=== PATIENT | male | born 1945 | race Caucasian/White ===

== ENCOUNTER 2020-12-31 16:32 | Inpatient (IN) ==
[2020-12-31] MEDS ORDERED: SODIUM CHLORIDE 1,000 ML IV STA (16:41)
--- NOTE | 2020-12-31 17:06 | CT ---
EXAM: CT head without contrast. HISTORY: Lateralizing weakness. PROCEDURE: Contiguous axial CT images of the head without contrast with coronal and sagittal reforma ts. FINDINGS: There is diffuse cerebral atrophy. The ventricles and basal cisterns are normal in size an d configuration. No evidence of mass or midline shift. No intracranial hemorrhage or evidence of la rge vessel infarct. There is a left lacunar infarct. There are chronic small vessel ischemic change s in the white matter. No extra-axial fluid collection. The paranasal sinuses and mastoid air cells are normal in appearance. Impression: No intracranial hemorrhage or evidence of large vessel infarct. Old left lacunar infarct. Chronic small vessel ischemic changes. Diffuse cerebral atrophy. All CT scans are performed using dose optimization techniques as appropriate to the performed exam an d include at least one of the following: Automated exposure control, adjustment of the mA and/or kV according t o size, and the use of iterative reconstruction technique.
[2020-12-31 17:10] LABS: BASOPHILS % (AUTO) 0.1 % (0.0-3.0); EOSINOPHILS % (AUTO) 0.3 % (0.0-7.0); HEMATOCRIT 36.6 % (42.0-52.0); HEMOGLOBIN 13.1 g/dl (14.0-18.0); IMMATURE GRANULOCYTE % (AUTO) 0.4 % (0.0-5.0); LYMPHOCYTES # (AUTO) 2.2 K/uL (0.60-3.4); LYMPHOCYTES % (AUTO) 19.5 (10.0-50.0); MEAN CORPUSCULAR HEMOGLOBIN 32.3 pg (27.0-31.0); MEAN CORPUSCULAR HGB CONC 35.8 (31.8-35.4); MEAN CORPUSCULAR VOLUME 90.1 fl (80.0-94.0); MONOCYTES # (AUTO) 0.9 K/uL (0.4-2.0); MONOCYTES % (AUTO) 7.9 (0-10); NEUTROPHILS % (AUTO) 71.8 % (42.2-75.2); PLATELET COUNT 255 10^3/uL (140-440); RDW COEFFICIENT OF VARIATION 11.9 % (11.6-14.8); RED BLOOD COUNT 4.06 10^6/ul (4.70-6.10); WHITE BLOOD COUNT 11.08 K/ul (4.2-10.2)
[2020-12-31 17:23] LABS: ALANINE AMINOTRANSFERASE 21.5 U/L (0-50); ASPARTATE AMINO TRANSFERASE 32.2 U/L (17-59); BILIRUBIN,TOTAL 0.48 mg/dL (0.2-1.3); BLOOD UREA NITROGEN 53.6 mg/dL (9-20); CALCIUM 9.91 mg/dL (8.4-10.2); CHLORIDE 97.6 mmol/L (98-107); CREATININE 3.14 mg/dL (0.60-1.10); POTASSIUM 4.72 mmol/L (3.5-5.1); SODIUM 131.4 mmol/L (134.5-145)
--- NOTE | 2020-12-31 17:28 | ED.PDOC ---
General <LISSY RAMIREZ MD - Last Filed: 12/31/20 19:35> ED Provider: Dr. LISSY RAMIREZ MD Chief Complaint: Dizziness Stated Complaint: Pt has been more confused and dizzy than usual. denied acute lateralizing weakness, chest pain or SOB. Time Seen by Provider: 12/31/20 16:34 Mode of Arrival: Ambulance Information Source: Patient Exam Limitations: No limitations Nursing and Triage Documentation Reviewed and Agree: Yes Does patient meet sepsis criteria?: No System Inflammatory Response Syndrome: Not Applicable Sepsis Protocol: For patient's 13 years and over: Temp is 96.8 and below OR 101 and greater Pulse >90 BPM Resp >20/minute Acutely Altered Mental Status Are patient's symptoms suggestive of a new infection, such as: -Pneumonia -Skin, Soft Tissue -Endocarditis -UTI -Bone, Joint Infection -Implantable Device -Acute Abdominal Infection -Wound Infection -Meningitis -Blood Stream Catheter Infection -Unknown Neurological Complaint Exam <LISSY RAMIREZ MD - Last Filed: 12/31/20 19:35> Dizziness Complaint/Exam Last Known Well: 2 days ago Onset: Gradual Duration: 2 days. Symptoms Are: Still present Timing: Constant Episodes Lasting: Days Initial Severity: Mild Current Severity: Moderate Character: Reports Lightheaded, Weak and Dizzy Aggravating: Reports Position change Alleviating: Reports None Cardiac Risk Factors: Reports Hypertension CVA Risk Factors: Reports Hypertension JVD Present: No Carotid Bruit Present: No Glascow Coma Scale (see protocol): 15 Nystagmus Present: No Gag Reflex Present: Yes Meningeal Signs Positive: No Focal Weakness: Present None Focal Sensory Loss: Present None Differential Diagnoses: BPPV, Medication reaction, Metabolic abnormalities and Vasovagal reaction Review of Systems <LISSY RAMIREZ MD - Last Filed: 12/31/20 19:35> Review Of Systems Constitutional: Reports No symptoms Eyes: Reports No symptoms Ears, Nose, Mouth, Throat: Reports No symptoms Respiratory: Reports No symptoms Cardiac: Reports No symptoms GI: Reports Nausea : Reports No symptoms Musculoskeletal: Reports No symptoms Skin: Reports No symptoms Neurological: Reports Weakness Endocrine: Reports No symptoms Hematologic/Lymphatic: Reports No symptoms All Other Systems: Reviewed and Negative Physical Exam <LISSY RAMIREZ MD - Last Filed: 12/31/20 19:35> Physical Exam Appearance: Reports Other (unkempt) Ill-appearing: Mild Pain Distress: None Eyes: Reports AVANI, EOMI and Conjunctiva clear ENT: Reports Ears normal, Nose normal and Oropharynx normal Neck: Supple Respiratory: Reports Airway patent, Breath sounds equal, Rhonchi and Wheezes Cardiovascular: Reports RRR, Pulses normal, No rub and No murmur GI/: Reports Soft, Nontender, No masses, Bowel sounds normal and No Organomegaly Musculoskeletal: Reports Normal strength, ROM intact, No edema and No calf tenderness Skin: Reports Warm, Dry and Normal color Neurological: Reports Sensation intact, Motor intact, Reflexes intact, Cranial nerves intact, Alert and Oriented Psychiatric: Reports Affect appropriate and Mood appropriate <LISSY RAMRIEZ MD - Last Filed: 12/31/20 19:35> NIH Stroke Scale 1a. Level of Consciousness: 0=Alert and keenly responsive 1b. Level of Consciousness Questions: 0=Answers correctly to two questions 1c. Level of Consciousness Commands: 0=Performs two tasks correctly 2. Best Gaze: 0=Normal 3. Visual: 0=No visual loss 4. Facial Palsy: 0=Normal 5a. Motor Left Arm: 0=No drift,arm holds 90 degrees for 10 sec., leg 30 degrees for 5 sec. 5b. Motor Right Arm: 0=No drift,arm holds 90 degrees for 10 sec., leg 30 degrees for 5 sec. 6a. Motor Left Le=No drift,arm holds 90 degrees for 10 sec., leg 30 degrees for 5 sec. 6b. Motor Right Le=No drift,arm holds 90 degrees for 10 sec., leg 30 degrees for 5 sec. 7. Limb Ataxia: 0=Absent 8. Sensory: 0=Normal 9. Best Language: 0=No aphasia 10. Dysarthria: 0=Normal 11. Extincion and Inattention: 0=Normal Stroke Scale Total: 0 Interpretation <LISSY RAMIREZ MD - Last Filed: 12/31/20 19:35> Radiology Interpretation Radiology Interpretation By: Radiologist Exam Interpreted: CT Scan Re-Evaluation <LISSY RAMIREZ MD - Last Filed: 12/31/20 19:35> Re-Evaluation Time of Re-Evaluation: 17:28 Status: Improved Vital Signs Stable: Yes Pain Level: 0 Appearance: NAD Lungs: Other (mild wheezes and rhonchi) Skin: Warm and Dry Neuro: Alert and Oriented X3 CV: RRR <GULSHAN COWAN MD - Last Filed: 12/31/20 20:46> Critical Care Note Total Critical Care Time (mins): 30 Course <LISSY RAMIREZ MD - Last Filed: 12/31/20 19:35> Course Hematology/Chemistry: 12/31/20 17:05 12/31/20 17:05 Orders, Labs, Meds: Lab Review 12/31/20 12/31/20 12/31/20 17:05 17:05 17:05 WBC 11.08 H RBC 4.06 L Hgb 13.1 L Hct 36.6 L MCV 90.1 MCH 32.3 H MCHC 35.8 H RDW Coeff of [place] 11.9 Plt Count 255 Immature Gran % (Auto) 0.4 Neut % (Auto) 71.8 Lymph % (Auto) 19.5 Emm[place] % (Auto) 7.9 Eos % (Auto) 0.3 Baso % (Auto) 0.1 Neut # (Auto) 8.0 H Lymph # (Auto) 2.2 Emmons # (Auto) 0.9 Eos # (Auto) 0.0 Baso # (Auto) 0.0 Immature Gran # (Auto) 0.0 Sodium 131.4 L Potassium 4.72 Chloride 97.6 L Carbon Dioxide 23.0 Anion Gap 15.52 BUN 53.6 H Creatinine 3.14 H Estimated GFR (MDRD) 20.00 BUN/Creatinine Ratio 17.07 Glucose 113.0 H Lactic Acid 1.59 Calcium 9.91 Total Bilirubin 0.48 AST 32.2 ALT 21.5 Alkaline Phosphatase 110.0 Troponin I < 0.012 Total Protein 7.90 Albumin 4.60 Globulin 3.30 Albumin/Globulin Ratio 1.39 Urine Color Urine Clarity Urine pH Ur Specific [place] Urine Protein Urine Glucose (UA) Urine Ketones Urine Blood Urine Nitrite Urine Bilirubin Urine Urobilinogen Ur Leukocyte Esterase Urine Microscopic RBC Ur Squamous Epith Cells Amorphous Sediment Hyaline Casts Fine Granular Casts Urine Opiates Screen Ur Oxycodone Screen Urine Methadone Screen Ur Propoxyphene Screen Ur Barbiturates Screen U Tricyclic Antidepress Ur Phencyclidine Scrn Ur Amphetamine Screen U Methamphetamines Scrn U Benzodiazepines Scrn Urine Cocaine Screen U Cannabinoids Screen Plasma/Serum Alcohol < 10.0 12/31/20 12/31/20 20:01 20:01 WBC RBC Hgb Hct MCV MCH MCHC RDW Coeff of [place] Plt Count Immature Gran % (Auto) Neut % (Auto) Lymph % (Auto) Emm[place] % (Auto) Eos % (Auto) Baso % (Auto) Neut # (Auto) Lymph # (Auto) Emm[place] # (Auto) Eos # (Auto) Baso # (Auto) Immature Gran # (Auto) Sodium Potassium Chloride Carbon Dioxide Anion Gap BUN Creatinine Estimated GFR (MDRD) BUN/Creatinine Ratio Glucose Lactic Acid Calcium Total Bilirubin AST ALT Alkaline Phosphatase Troponin I Total Protein Albumin Globulin Albumin/Globulin Ratio Urine Color Yellow Urine Clarity Clear Urine pH 5.0 Ur Specific [place] 1.025 Urine Protein Trace H Urine Glucose (UA) Negative Urine Ketones 1+ H Urine Blood Negative Urine Nitrite Negative Urine Bilirubin 1+ H Urine Urobilinogen 0.2 Ur Leukocyte Esterase Negative Urine Microscopic RBC 2-5 Ur Squamous Epith Cells 0-2 Amorphous Sediment 1+ Hyaline Casts 2-5 Fine Granular Casts 2-5 Urine Opiates Screen Negative Ur Oxycodone Screen Negative Urine Methadone Screen Negative Ur Propoxyphene Screen Negative Ur Barbiturates Screen Negative U Tricyclic Antidepress Negative Ur Phencyclidine Scrn Negative Ur Amphetamine Screen Positive H U Methamphetamines Scrn Negative U Benzodiazepines Scrn Negative Urine Cocaine Screen Negative U Cannabinoids Screen Negative Plasma/Serum Alcohol Orders Category Date Time Status EKG-(ED ONLY) Stat CARDIO 12/31/20 16:41 Completed METERED DOSE INHALATION Routine CARDIO 12/31/20 17:33 Completed ED IV/MEDIPORT/POWERPORT .ONCE EMERGENCY 12/31/20 16:41 Active BLOOD ALCOHOL Stat LAB 12/31/20 17:05 Completed BLOOD CULTURE (ED ONLY) Stat LAB 12/31/20 17:20 Received CBC W/ AUTO DIFF Stat LAB 12/31/20 17:05 Completed COMPREHENSIVE METABOLIC PANEL Stat LAB 12/31/20 17:05 Completed DRUG SCREEN, URINE, RAPID Stat LAB 12/31/20 20:01 Completed LACTIC ACID Stat LAB 12/31/20 17:05 Completed RESPIRATORY PANEL 2.1 (PCR) Stat LAB 12/31/20 Ordered TROPONIN I Stat LAB 12/31/20 17:05 Completed URINALYSIS C & S IF INDICATED Stat LAB 12/31/20 20:01 Completed 0.9 % Sodium Chloride [Saline Flush] MEDS 12/31/20 16:41 Active 1 syr IVF PRN PRN Albuterol Inhaler(with Spacer) [Ventolin Hfa (Per Puff- MEDS 12/31/20 17:31 Discontinued with Spacer)] 2 puff IH ONCE ONE Ipratropium Inhaler(Spacer) [Atrovent Hfa Inhaler (Per MEDS 12/31/20 17:31 Discontinued Puff-with Spacer)] 2 puff IH ONCE ONE Methylprednisolone Sod Succ/Pf [Solu-Medrol 125 mg] MEDS 12/31/20 17:31 Discontinued 125 mg IVP ONCE ONE Sodium Chloride 0.9% [Sodium Chloride] 1,000 ml MEDS 12/31/20 16:[address] ABDOMEN/PELVIS WO CONTRAST Stat RADS 12/31/20 19:[address] CHEST W/O CONTRAST Stat RADS 12/31/20 17:[address] HEAD W/O CONTRAST Stat RADS 12/31/20 16:41 Completed Medications Generic Name Dose Route Start Last Admin Trade Name Freq PRN Reason Stop Dose Admin Sodium Chloride 1 syr 12/31/20 16:41 12/31/20 17:11 0.9% Sodium Chloride 10 Ml Disp.Syrin IVF 1 syr PRN PRN Administration To flush IV Discontinued Medications Generic Name Dose Route Start Last Admin Trade Name Freq PRN Reason Stop Dose Admin Albuterol Sulfate 2 puff 12/31/20 17:31 12/31/20 17:53 Albuterol Sulfate (Ventolin Hfa) 18 Gm 1 Puff With Spacer IH 12/31/20 17:32 2 puff ONCE ONE Administration Sodium Chloride 1,000 mls @ 1,000 mls/hr 12/31/20 16:41 12/31/20 17:10 Sodium Chloride IV 12/31/20 17:40 1,000 mls/hr BOLUS STA Administration Ipratropium [place] 2 puff 12/31/20 17:31 12/31/20 17:54 Ipratropium [place] 12.9 Gm Hfa Inhaler Per Puff With Spacer IH 12/31/20 17:32 2 puff ONCE ONE Administration Methylprednisolone Sodium Succinate 125 mg 12/31/20 17:31 12/31/20 17:51 Methylprednisolone Sod Succ/Pf 125 Mg/2 Ml Vial IVP 12/31/20 17:32 125 mg ONCE ONE Administration Vital Signs: Temp Pulse Resp BP Pulse Ox 12/31/20 16:32 97.6 F 88 18 79/63 L 95 <GULSHAN COWAN MD - Last Filed: 12/31/20 20:46> Course Orders, Labs, Meds: Lab Review 12/31/20 12/31/20 12/31/20 17:05 17:05 17:05 WBC 11.08 H RBC 4.06 L Hgb 13.1 L Hct 36.6 L MCV 90.1 MCH 32.3 H MCHC 35.8 H RDW Coeff of [place] 11.9 Plt Count 255 Immature Gran % (Auto) 0.4 Neut % (Auto) 71.8 Lymph % (Auto) 19.5 Emmons % (Auto) 7.9 Eos % (Auto) 0.3 Baso % (Auto) 0.1 Neut # (Auto) 8.0 H Lymph # (Auto) 2.2 Emm[place] # (Auto) 0.9 Eos # (Auto) 0.0 Baso # (Auto) 0.0 Immature Gran # (Auto) 0.0 Sodium 131.4 L Potassium 4.72 Chloride 97.6 L Carbon Dioxide 23.0 Anion Gap 15.52 BUN 53.6 H Creatinine 3.14 H Estimated GFR (MDRD) 20.00 BUN/Creatinine Ratio 17.07 Glucose 113.0 H Lactic Acid 1.59 Calcium 9.91 Total Bilirubin 0.48 AST 32.2 ALT 21.5 Alkaline Phosphatase 110.0 Troponin I < 0.012 Total Protein 7.90 Albumin 4.60 Globulin 3.30 Albumin/Globulin Ratio 1.39 Urine Color Urine Clarity Urine pH Ur Specific [place] Urine Protein Urine Glucose (UA) Urine Ketones Urine Blood Urine Nitrite Urine Bilirubin Urine Urobilinogen Ur Leukocyte Esterase Urine Microscopic RBC Ur Squamous Epith Cells Amorphous Sediment Hyaline Casts Fine Granular Casts Urine Opiates Screen Ur Oxycodone Screen Urine Methadone Screen Ur Propoxyphene Screen Ur Barbiturates Screen U Tricyclic Antidepress Ur Phencyclidine Scrn Ur Amphetamine Screen U Methamphetamines Scrn U Benzodiazepines Scrn Urine Cocaine Screen U Cannabinoids Screen Plasma/Serum Alcohol < 10.0 12/31/20 12/31/20 20:01 20:01 WBC RBC Hgb Hct MCV MCH MCHC RDW Coeff of [place] Plt Count Immature Gran % (Auto) Neut % (Auto) Lymph % (Auto) [place] % (Auto) Eos % (Auto) Baso % (Auto) Neut # (Auto) Lymph # (Auto) [place] # (Auto) Eos # (Auto) Baso # (Auto) Immature Gran # (Auto) Sodium Potassium Chloride Carbon Dioxide Anion Gap BUN Creatinine Estimated GFR (MDRD) BUN/Creatinine Ratio Glucose Lactic Acid Calcium Total Bilirubin AST ALT Alkaline Phosphatase Troponin I Total Protein Albumin Globulin Albumin/Globulin Ratio Urine Color Yellow Urine Clarity Clear Urine pH 5.0 Ur Specific [place] 1.025 Urine Protein Trace H Urine Glucose (UA) Negative Urine Ketones 1+ H Urine Blood Negative Urine Nitrite Negative Urine Bilirubin 1+ H Urine Urobilinogen 0.2 Ur Leukocyte Esterase Negative Urine Microscopic RBC 2-5 Ur Squamous Epith Cells 0-2 Amorphous Sediment 1+ Hyaline Casts 2-5 Fine Granular Casts 2-5 Urine Opiates Screen Negative Ur Oxycodone Screen Negative Urine Methadone Screen Negative Ur Propoxyphene Screen Negative Ur Barbiturates Screen Negative U Tricyclic Antidepress Negative Ur Phencyclidine Scrn Negative Ur Amphetamine Screen Positive H U Methamphetamines Scrn Negative U Benzodiazepines Scrn Negative Urine Cocaine Screen Negative U Cannabinoids Screen Negative Plasma/Serum Alcohol Orders Category Date Time Status EKG-(ED ONLY) Stat CARDIO 12/31/20 16:41 Completed METERED DOSE INHALATION Routine CARDIO 12/31/20 17:33 Completed ED IV/MEDIPORT/POWERPORT .ONCE EMERGENCY 12/31/20 16:41 Active BLOOD ALCOHOL Stat LAB 12/31/20 17:05 Completed BLOOD CULTURE (ED ONLY) Stat LAB 12/31/20 17:20 Received CBC W/ AUTO DIFF Stat LAB 12/31/20 17:05 Completed COMPREHENSIVE METABOLIC PANEL Stat LAB 12/31/20 17:05 Completed DRUG SCREEN, URINE, RAPID Stat LAB 12/31/20 20:01 Completed LACTIC ACID Stat LAB 12/31/20 17:05 Completed RESPIRATORY PANEL 2.1 (PCR) Stat LAB 12/31/20 Ordered TROPONIN I Stat LAB 12/31/20 17:05 Completed URINALYSIS C & S IF INDICATED Stat LAB 12/31/20 20:01 Completed 0.9 % Sodium Chloride [Saline Flush] MEDS 12/31/20 16:41 Active 1 syr IVF PRN PRN Albuterol Inhaler(with Spacer) [Ventolin Hfa (Per Puff- MEDS 12/31/20 17:31 Discontinued with Spacer)] 2 puff IH ONCE ONE Ipratropium Inhaler(Spacer) [Atrovent Hfa Inhaler (Per MEDS 12/31/20 17:31 Discontinued Puff-with Spacer)] 2 puff IH ONCE ONE Methylprednisolone Sod Succ/Pf [Solu-Medrol 125 mg] MEDS 12/31/20 17:31 Discontinued 125 mg IVP ONCE ONE Sodium Chloride 0.9% [Sodium Chloride] 1,000 ml MEDS 12/31/20 16:[address] ABDOMEN/PELVIS WO CONTRAST Stat RADS 12/31/20 19:[address] CHEST W/O CONTRAST Stat RADS 12/31/20 17:[address] HEAD W/O CONTRAST Stat RADS 12/31/20 16:41 Completed Medications Generic Name Dose Route Start Last Admin Trade Name Freq PRN Reason Stop Dose Admin Sodium Chloride 1 syr 12/31/20 16:41 12/31/20 17:11 0.9% Sodium Chloride 10 Ml Disp.Syrin IVF 1 syr PRN PRN Administration To flush IV Discontinued Medications Generic Name Dose Route Start Last Admin Trade Name Freq PRN Reason Stop Dose Admin Albuterol Sulfate 2 puff 12/31/20 17:31 12/31/20 17:53 Albuterol Sulfate (Ventolin Hfa) 18 Gm 1 Puff With Spacer IH 12/31/20 17:32 2 puff ONCE ONE Administration Sodium Chloride 1,000 mls @ 1,000 mls/hr 12/31/20 16:41 12/31/20 17:10 Sodium Chloride IV 12/31/20 17:40 1,000 mls/hr BOLUS STA Administration Ipratropium [place] 2 puff 12/31/20 17:31 12/31/20 17:54 Ipratropium [place] 12.9 Gm Hfa Inhaler Per Puff With Spacer IH 12/31/20 17:32 2 puff ONCE ONE Administration Methylprednisolone Sodium Succinate 125 mg 12/31/20 17:31 12/31/20 17:51 Methylprednisolone Sod Succ/Pf 125 Mg/2 Ml Vial IVP 12/31/20 17:32 125 mg ONCE ONE Administration Vital Signs: Temp Pulse Resp BP Pulse Ox 12/31/20 16:32 97.6 F 88 18 79/63 L 95 Discharge Plan Discharge Patient Disposition: ADMITTED INPATIENT Discharge Problem: FAHAD (acute kidney injury) Prescriptions: No Action dextroamphetamine 15 mg capsule, extended release 15 mg PO DAILY RF: 0 dextroamphetamine 5 mg capsule, extended release 5 mg PO DAILY RF: 0 hydrochlorothiazide 25 mg tablet 25 mg PO DAILY RF: 0 lisinopril 40 mg tablet 40 mg PO DAILY RF: 0 ED Provider: GULSHAN COWAN Condition: Fair <LISSY RAMIREZ MD - Last Filed: 12/31/20 19:35> Physician Progress Note: []Pt was endorsed to Dr Dumont at 1900.
[2020-12-31] MEDS ORDERED: SOLU-MEDROL 125 MG IVP ONE (17:31)
[2020-12-31] MEDS ORDERED: ATROVENT HFA INHALER (PER PUFF-WITH SPACER) IH ONE (17:31)
[2020-12-31] MEDS ORDERED: VENTOLIN HFA (PER PUFF-WITH SPACER) IH ONE (17:31)
[2020-12-31 17:33] LABS: BLOOD ALCOHOL < 10.0 mg/dL (0.0-50.0); TROPONIN I < 0.012 ng/ml (0.0000-0.120)
--- NOTE | 2020-12-31 18:20 | CT ---
EXAM: CT chest without IV contrast HISTORY: Shortness of breath, dizziness, fatigue, decreased appetite TECHNIQUE: Multi-slice transaxial helical. Coronal and sagital reformations were performed. CT was performed using dose optimization techniques such as automated exposure control and/or mA/kV adjustm ent according to patient size. COMPARISON: None FINDINGS: The heart is normal in size. Moderate to heavy calcified plaques are seen within the thoracic aorta. Mild to moderate calcified plaques are seen within the coronary arteries. No evidence of mediastin al adenopathy is seen. No axillary adenopathy is seen. Mild to moderate right renal atrophy is pres ent. Advanced degenerative changes of the shoulder girdles are seen. Advanced thoracic spondylosis is present. Minimal dependent atelectasis is seen within the right lung base. 4 mmnoncalcified pulm onary nodule in the right middle lobe as seen on axial image 40. Left apical calcified granuloma is seen. No focal airspace opacity or pleural effusion is seen. IMPRESSION: 1. No acute cardiopulmonary findings. 2. Minimal dependent right basilar atelectasis. 3. Right middle lobe 4 mm pulmonary nodule. If the patient is low risk, no further follow-up is rec ommended. If the patient is high risk such as smoking history, recommend follow-up CT chest in 12 mo nths per Fleischner Society recommendations. 4. Atherosclerosis including coronary disease. 5. Mild to moderate right renal atrophy. 6. Other chronic/incidental findings as above. All CT scans are performed using dose optimization techniques as appropriate to the performed exam an d include at least one of the following: Automated exposure control, adjustment of the mA and/or kV according t o size, and the use of iterative reconstruction technique.
[2020-12-31 20:07] LABS: BILIRUBIN,URINE 1+ (NEGATIVE); CLARITY,URINE Clear (CLEAR); COLOR,URINE Yellow (YELLOW); GLUCOSE, URINE (UA) Negative (NEGATIVE); KETONES,URINE 1+ (NEGATIVE); LEUKOCYTE ESTERASE ,URINE Negative (NEGATIVE); NITRITE,URINE Negative (NEGATIVE); PROTEIN,URINE Trace (NEGATIVE); URINE, BLOOD Negative (NEGATIVE); UROBILINOGEN,URINE 0.2 (0.2)
[2020-12-31 20:19] LABS: AMORPHOUS SEDIMENT,UR 1+ (NOT PRESENT); AMPHETAMINE SCREEN,URINE POSITIVE (NEGATIVE); BARBITURATE SCREEN,URINE NEGATIVE (NEGATIVE); BENZODIAZEPINES SCREEN,URINE NEGATIVE (NEGATIVE); CANNABINOID SCREEN,URINE NEGATIVE (NEGATIVE); COCAIN SCREEN,URINE NEGATIVE (NEGATIVE); METHADONE URINE SCREEN NEGATIVE (NEGATIVE); METHAMPHETAMINES SCREEN,URINE NEGATIVE (NEGATIVE); OPIATE SCREEN,URINE NEGATIVE (NEGATIVE); OXYCODONE URINE SCREEN NEGATIVE (NEGATIVE); PHENCYCLIDINE SCREEN,URINE NEGATIVE (NEGATIVE); PROPOXYPHENE URINE SCREEN NEGATIVE (NEGATIVE); SQUAMOUS EPITHELIAL CELL,UR 0-2 (0-5); TRICYCLIC ANTIDEPRESSANTS URIN NEGATIVE (NEGATIVE)
--- NOTE | 2020-12-31 20:37 | CT ---
EXAM: CT abdomen and pelvis without contrast per HISTORY: Acute kidney injury, shortness of breath with exertion, dizziness, fatigue, decreased appeti te TECHNIQUE: Multi-slice transaxial helical CT. Coronal and sagittal reformatons were performed. CT was performed using dose optimization techniques such as automated exposure control and/or mA/kV adju stment according to patient size. COMPARISON: CT chest from same day. FINDINGS: The same day CT chest for chest findings. Evaluation of the solid organs is limited without IV contrast. The gallbladder and the spleen appear normal in size. Mild to moderate right renal atrophy is again seen. No evidence of hydronephrosis o r renal calculus is seen. The pancreas and the bilateral adrenal glands appear grossly unremarkable. A small soft tissue nodule is seen adjacent to the liver measuring 1.3 cm as seen on axial image 41 . No intrahepatic biliary dilation is seen. The bowel is not dilated. Prostate is enlarged measuring 5.0 cm transverse diameter. The urinary bl adder is nondistended. Questionable thickening of the urinary bladder wall is seen diffusely. No pe lvic free fluid is seen. The visualized appendix appears normal in size. Moderate calcified plaques are seen within the abdominal aorta. No retroperitoneal adenopathy is seen. Advanced lumbar spondy losis is seen. IMPRESSION: 1. Questionable thickening of the urinary bladder versus nondistension. Correlate for cystitis or c hronic outlet obstruction. 2. Prostatic enlargement. 3. Mild to moderate right renal atrophy. 4. Nonspecific small soft tissue nodule adjacent to the liver measuring 1.3 cm. Differential includ es a small exophytic liver nodule, lymph node, or neoplasm. Recommend CT abdomen with IV contrast in three - 6 months to demonstrate stability. 5. Limited exam without contrast. 6. Other chronic/incidental findings as above. All CT scans are performed using dose optimization techniques as appropriate to the performed exam an d include at least one of the following: Automated exposure control, adjustment of the mA and/or kV according t o size, and the use of iterative reconstruction technique.
[2020-12-31] MEDS: SODIUM CHLORIDE 1,000 ML IV SCH (20:56)
[2021-01-01 00:34] VITALS: BMI 21.0
--- NOTE | 2021-01-01 05:19 | PCM ---
Chief Complaint Chief Complaint: "i was weak" History of Present Illness History of Present Illness: Alysia is a 75 yr old male with hx of htn who presented by ems to ed with weakness, hypotension and fahad with creatinine ot 3. Review of Systems Constitutional: Reports Weakness Eyes: Reports No symptoms Ears: Reports No symptoms Nose: Reports No symptoms Throat: Reports No symptoms Mouth: Reports No symptoms Respiratory: Reports No symptoms Cardiovascular: Reports No symptoms Gastrointestinal: Reports No symptoms Genitourinary: Reports No symptoms Neurological: Reports No symptoms Musculoskeletal: Reports No symptoms Skin: Reports No symptoms Immunology: Reports No symptoms Hematology: Reports No symptoms Endocrine: Reports No symptoms Psychiatric: Reports No symptoms Habits: Denies Tobacco use, Substance use, Alcohol use and Other Allergies Allergies Allergy/AdvReac Type Severity Reaction Status Date / Time Sulfa (Sulfonamide AdvReac Verified 12/31/20 17:05 Antibiotics) red meat AdvReac Uncoded 12/31/20 17:05 PFSH Family History Mother Breast cancer Social History Smoking and tobacco status: Current every day smoker Tobacco type: cigarettes Smoking cigarettes per day: 5 Years smoked: 50 Smoking pack-years: 12.50 and cigars Per week: 25 Tobacco: How many years used: 50 Quit status: has quit before Alcohol intake: current Alcohol intake frequency: 0-2 drinks per day Alcohol type: beer Substance use type: marijuana Adopted: No Caregiver/support person: No Foster care: No Household members: none Housing: house Marital status: D Lives independently: Yes Number of children: 1 Highest education level completed: Bachelor's degree Current occupational status: retired Previous occupational history: teacher Seatbelt use: always Helmet use: No Drives intoxicated or rides with intoxicated driver wheelchair: No Current diet type/program: regular Medications Medications: Medications Generic Name Dose Route Start Last Admin Trade Name Freq PRN Reason Stop Dose Admin Enoxaparin Sodium 30 mg 01/01/21 09:00 Enoxaparin Sodium 30 Mg/0.3 Ml Syr SUBCUT DAILY MICHAEL Sodium Chloride 1,000 mls @ 75 mls/hr 12/31/20 21:00 12/31/20 20:56 Sodium Chloride IV 75 mls/hr .[id number] MICHAEL Administration Sodium Chloride 1 syr 12/31/20 16:41 12/31/20 17:11 0.9% Sodium Chloride 10 Ml Disp.Syrin IVF 1 syr PRN PRN Administration To flush IV Body Composition Height: 5 ft 7 in Weight: 134 lb 5 oz Body Mass Index (BMI): 21.0 Vital Signs Temperature: 98.1 F Pulse Rate: 107 Respiratory Rate: 18 Blood Pressure: 79/63 O2 Sat by Pulse Oximetry: 92 Physical Examination Appearance: Reports Well-appearing Ill-appearing: Mild Pain Distress: None Eyes: Reports AVANI, EOMI and Conjunctiva clear ENT: Reports Ears normal, Nose normal and Oropharynx normal Neck: Supple Respiratory: Reports Airway patent, Breath sounds clear and Breath sounds equal Cardiovascular: Reports RRR, Pulses normal, No rub and No murmur GI/: Reports Soft, Nontender, No masses and Bowel sounds normal Musculoskeletal: Reports Normal strength, ROM intact and No edema Skin: Reports Warm, Dry and Normal color Neurological: Reports Sensation intact, Motor intact, Reflexes intact, Cranial nerves intact, Alert and Oriented Psychiatric: Reports Affect appropriate and Mood appropriate Lab/Tests/Diagnostic Imaging Lab/Tests/Diagnostic Imaging: Lab Review 12/31/20 12/31/20 12/31/20 17:05 17:05 17:05 WBC 11.08 H RBC 4.06 L Hgb 13.1 L Hct 36.6 L MCV 90.1 MCH 32.3 H MCHC 35.8 H RDW Coeff of [place] 11.9 Plt Count 255 Immature Gran % (Auto) 0.4 Neut % (Auto) 71.8 Lymph % (Auto) 19.5 [place] % (Auto) 7.9 Eos % (Auto) 0.3 Baso % (Auto) 0.1 Neut # (Auto) 8.0 H Lymph # (Auto) 2.2 [place] # (Auto) 0.9 Eos # (Auto) 0.0 Baso # (Auto) 0.0 Immature Gran # (Auto) 0.0 Sodium 131.4 L Potassium 4.72 Chloride 97.6 L Carbon Dioxide 23.0 Anion Gap 15.52 BUN 53.6 H Creatinine 3.14 H Estimated GFR (MDRD) 20.00 BUN/Creatinine Ratio 17.07 Glucose 113.0 H Lactic Acid 1.59 Calcium 9.91 Total Bilirubin 0.48 AST 32.2 ALT 21.5 Alkaline Phosphatase 110.0 Troponin I < 0.012 Total Protein 7.90 Albumin 4.60 Globulin 3.30 Albumin/Globulin Ratio 1.39 Urine Color Urine Clarity Urine pH Ur Specific [place] Urine Protein Urine Glucose (UA) Urine Ketones Urine Blood Urine Nitrite Urine Bilirubin Urine Urobilinogen Ur Leukocyte Esterase Urine Microscopic RBC Ur Squamous Epith Cells Amorphous Sediment Hyaline Casts Fine Granular Casts Urine Opiates Screen Ur Oxycodone Screen Urine Methadone Screen Ur Propoxyphene Screen Ur Barbiturates Screen U Tricyclic Antidepress Ur Phencyclidine Scrn Ur Amphetamine Screen U Methamphetamines Scrn U Benzodiazepines Scrn Urine Cocaine Screen U Cannabinoids Screen Plasma/Serum Alcohol < 10.0 Adenovirus (PCR) B. pertussis DNA (PCR) B.parapertussis DNA PCR C. pneumoniae DNA (PCR) Coronavirus OC43 (PCR) Coronavirus HKU1 (PCR) Coronavirus 229E (PCR) Coronavirus NL63 (PCR) Human Metapneumovir PCR Influenza Type A (PCR) Influenza B (RT-PCR) M. pneumoniae (PCR) Parainfluenza 1 (PCR) Parainfluenza 2 (PCR) Parainfluenza 3 (PCR) Parainfluenza 4 (PCR) RSV (PCR) Entero/Rhino (PCR) SARS-CoV-2 (PCR) 12/31/20 12/31/20 12/31/20 20:01 20:01 21:30 WBC RBC Hgb Hct MCV MCH MCHC RDW Coeff of [place] Plt Count Immature Gran % (Auto) Neut % (Auto) Lymph % (Auto) [place] % (Auto) Eos % (Auto) Baso % (Auto) Neut # (Auto) Lymph # (Auto) [place] # (Auto) Eos # (Auto) Baso # (Auto) Immature Gran # (Auto) Sodium Potassium Chloride Carbon Dioxide Anion Gap BUN Creatinine Estimated GFR (MDRD) BUN/Creatinine Ratio Glucose Lactic Acid Calcium Total Bilirubin AST ALT Alkaline Phosphatase Troponin I Total Protein Albumin Globulin Albumin/Globulin Ratio Urine Color Yellow Urine Clarity Clear Urine pH 5.0 Ur Specific [place] 1.025 Urine Protein Trace H Urine Glucose (UA) Negative Urine Ketones 1+ H Urine Blood Negative Urine Nitrite Negative Urine Bilirubin 1+ H Urine Urobilinogen 0.2 Ur Leukocyte Esterase Negative Urine Microscopic RBC 2-5 Ur Squamous Epith Cells 0-2 Amorphous Sediment 1+ Hyaline Casts 2-5 Fine Granular Casts 2-5 Urine Opiates Screen Negative Ur Oxycodone Screen Negative Urine Methadone Screen Negative Ur Propoxyphene Screen Negative Ur Barbiturates Screen Negative U Tricyclic Antidepress Negative Ur Phencyclidine Scrn Negative Ur Amphetamine Screen Positive H U Methamphetamines Scrn Negative U Benzodiazepines Scrn Negative Urine Cocaine Screen Negative U Cannabinoids Screen Negative Plasma/Serum Alcohol Adenovirus (PCR) Not detected B. pertussis DNA (PCR) Not detected B.parapertussis DNA PCR Not detected C. pneumoniae DNA (PCR) Not detected Coronavirus OC43 (PCR) Not detected Coronavirus HKU1 (PCR) Not detected Coronavirus 229E (PCR) Not detected Coronavirus NL63 (PCR) Not detected Human Metapneumovir PCR Not detected Influenza Type A (PCR) Not detected Influenza B (RT-PCR) Not detected M. pneumoniae (PCR) Not detected Parainfluenza 1 (PCR) Not detected Parainfluenza 2 (PCR) Not detected Parainfluenza 3 (PCR) Not detected Parainfluenza 4 (PCR) Not detected RSV (PCR) Not detected Entero/Rhino (PCR) Not detected SARS-CoV-2 (PCR) Not detected Orders Category Date Time Status ADMIT PATIENT INPATIENT .TO MEDS[facility] (MONITORED BED) ADMISSION 12/31/20 20:46 Active EKG-(ED ONLY) Stat CARDIO 12/31/20 16:41 Completed METERED DOSE INHALATION Routine CARDIO 12/31/20 17:33 Completed ACTIVITY .BR with BRP CARE 12/31/20 20:47 Active INTAKE & OUTPUT Q8HR CARE 12/31/20 20:47 Active IP: INSERT SALINE LOCK ONCE CARE 12/31/20 20:47 Active TELEMETRY MONITORING TELE CARE 12/31/20 20:46 Active VITAL SIGNS Q8HR CARE 12/31/20 20:47 Active REGULAR DIET DIETARY 12/31/20 Breakfast Ordered ED IV/MEDIPORT/POWERPORT .ONCE EMERGENCY 12/31/20 16:41 Active BLOOD ALCOHOL Stat LAB 12/31/20 17:05 Completed BLOOD CULTURE (ED ONLY) Stat LAB 12/31/20 17:20 Received CBC W/ AUTO DIFF DAILY@0600 LAB 01/01/21 06:00 Ordered CBC W/ AUTO DIFF DAILY@0600 LAB 01/02/21 06:00 Ordered CBC W/ AUTO DIFF Stat LAB 12/31/20 17:05 Completed COMPREHENSIVE METABOLIC PANEL DAILY@0600 LAB 01/01/21 06:00 Ordered COMPREHENSIVE METABOLIC PANEL DAILY@0600 LAB 01/02/21 06:00 Ordered COMPREHENSIVE METABOLIC PANEL Stat LAB 12/31/20 17:05 Completed DRUG SCREEN, URINE, RAPID Stat LAB 12/31/20 20:01 Completed LACTIC ACID Stat LAB 12/31/20 17:05 Completed RESPIRATORY PANEL 2.1 (PCR) Stat LAB 12/31/20 21:30 Completed TROPONIN I Stat LAB 12/31/20 17:05 Completed URINALYSIS C & S IF INDICATED Stat LAB 12/31/20 20:01 Completed 0.9 % Sodium Chloride [Saline Flush] MEDS 12/31/20 16:41 Active 1 syr IVF PRN PRN Albuterol Inhaler(with Spacer) [Ventolin Hfa (Per Puff- MEDS 12/31/20 17:31 Discontinued with Spacer)] 2 puff IH ONCE ONE Enoxaparin Sodium [Lovenox] MEDS 01/01/21 09:00 Active 30 mg SUBCUT DAILY Ipratropium Inhaler(Spacer) [Atrovent Hfa Inhaler (Per MEDS 12/31/20 17:31 Discontinued Puff-with Spacer)] 2 puff IH ONCE ONE Methylprednisolone Sod Succ/Pf [Solu-Medrol 125 mg] MEDS 12/31/20 17:31 Discontinued 125 mg IVP ONCE ONE Sodium Chloride 0.9% [Sodium Chloride] 1,000 ml MEDS 12/31/20 21:00 Active IV 75 mls/hr Sodium Chloride 0.9% [Sodium Chloride] 1,000 ml MEDS 12/31/20 16:41 Discontinued IV BOLUS RESUSCITATION STATUS Routine OTHERS 12/31/20 20:47 Completed RESUSCITATION STATUS Routine OTHERS 01/01/21 01:[address] ABDOMEN/PELVIS WO CONTRAST Stat RADS 12/31/20 19:[address] CHEST W/O CONTRAST Stat RADS 12/31/20 17:[address] HEAD W/O CONTRAST Stat RADS 12/31/20 16:41 Completed Medications Generic Name Dose Route Start Last Admin Trade Name Freq PRN Reason Stop Dose Admin Enoxaparin Sodium 30 mg 01/01/21 09:00 Enoxaparin Sodium 30 Mg/0.3 Ml Syr SUBCUT DAILY MICHAEL Sodium Chloride 1,000 mls @ 75 mls/hr 12/31/20 21:00 12/31/20 20:56 Sodium Chloride IV 75 mls/hr .[id number] MICHAEL Administration Sodium Chloride 1 syr 12/31/20 16:41 12/31/20 17:11 0.9% Sodium Chloride 10 Ml Disp.Syrin IVF 1 syr PRN PRN Administration To flush IV Discontinued Medications Generic Name Dose Route Start Last Admin Trade Name Freq PRN Reason Stop Dose Admin Albuterol Sulfate 2 puff 12/31/20 17:31 12/31/20 17:53 Albuterol Sulfate (Ventolin Hfa) 18 Gm 1 Puff With Spacer IH 12/31/20 17:32 2 puff ONCE ONE Administration Sodium Chloride 1,000 mls @ 1,000 mls/hr 12/31/20 16:41 12/31/20 17:10 Sodium Chloride IV 12/31/20 17:40 1,000 mls/hr BOLUS STA Administration Ipratropium [place] 2 puff 12/31/20 17:31 12/31/20 17:54 Ipratropium [place] 12.9 Gm Hfa Inhaler Per Puff With Spacer IH 12/31/20 17:32 2 puff ONCE ONE Administration Methylprednisolone Sodium Succinate 125 mg 12/31/20 17:31 12/31/20 17:51 Methylprednisolone Sod Succ/Pf 125 Mg/2 Ml Vial IVP 12/31/20 17:32 125 mg ONCE ONE Administration Assessment (1) FAHAD (acute kidney injury): Status: Acute Code(s): N17.9 - Acute kidney failure, unspecified SNOMED Code(s): 13422820 Plan Plan: iv fluids, monitor electrolytes and renal function--see orders
[2021-01-01 05:26] LABS: HEMATOCRIT 34.2 % (42.0-52.0); HEMOGLOBIN 12.3 g/dl (14.0-18.0); IMMATURE GRANULOCYTE % (AUTO) 0.5 % (0.0-5.0); LYMPHOCYTES % (AUTO) 15.6 (10.0-50.0); MEAN CORPUSCULAR VOLUME 89.1 fl (80.0-94.0); MONOCYTES # (AUTO) 0.1 K/uL (0.4-2.0); MONOCYTES % (AUTO) 2.2 (0-10); NEUTROPHILS # (AUTO) 5.3 K/ul (2.0-6.9); NEUTROPHILS % (AUTO) 81.7 % (42.2-75.2); PLATELET COUNT 243 10^3/uL (140-440); RED BLOOD COUNT 3.84 10^6/ul (4.70-6.10); WHITE BLOOD COUNT 6.43 K/ul (4.2-10.2)
[2021-01-01 05:39] LABS: ALANINE AMINOTRANSFERASE 20.3 U/L (0-50); ALBUMIN 3.97 g/dL (3.5-5.0); ALKALINE PHOSPHATASE 92.3 U/L (56-119); ASPARTATE AMINO TRANSFERASE 29.7 U/L (17-59); BILIRUBIN,TOTAL 0.47 mg/dL (0.2-1.3); BLOOD UREA NITROGEN 52.3 mg/dL (9-20); CALCIUM 9.13 mg/dL (8.4-10.2); CARBON DIOXIDE 22.2 mmol/L (22-30.0); CHLORIDE 101.9 mmol/L (98-107); CREATININE 2.24 mg/dL (0.60-1.10); GLUCOSE 139.8 mg/dL (74-106); POTASSIUM 4.83 mmol/L (3.5-5.1); SODIUM 131.7 mmol/L (134.5-145); TOTAL PROTEIN 7.05 g/dL (6.3-8.2)
--- NOTE | 2021-01-01 08:52 | PCM ---
Chief Complaint Chief Complaint: Shortness of Breath with exertion and weakness History of Present Illness History of Present Illness: 75 y/o cauc male evaluated in the ER by Dr Dumont on the evening of 01-01-21 for exertional dyspnea and weakness. Has been experien cing dizziness and increased fatigue with decreased appetite. Denies laterizatioin of his symptoms Review of Systems Constitutional: Reports Weakness; Denies No symptoms, Fever, Chills, Sweats, Fatigue, Loss of appetite and Other Eyes: Denies No symptoms, Blurred vision, Double-vision, Discharge, Itching, Pain, Redness, Photophobia and Other Ears: Denies No symptoms, Pain, Bleeding, Drainage, Ringing, Hearing loss and Other Nose: Denies No symptoms, Bleeding, Congestion, Discharge and Other Throat: Denies No symptoms, Pain, Swelling, Voice change and Other Mouth: Denies No symptoms, Bleeding, Pain, Swelling and Other Respiratory: Reports Shortness of air Cardiovascular: Reports No symptoms Gastrointestinal: Denies No symptoms, Abdominal pain, Nausea, Vomiting, Diarrhea, Melena, Hematemesis, Hematochezia, Dysphagia, Constipation and Other Genitourinary: Denies No symptoms, dysuria, hematuria, frequency, incontinence, flank pain, penile discharge, testicular pain, testicular swelling and other Neurological: Reports Dizziness and Weakness; Denies Headache, Seizure and Speech difficulty Musculoskeletal: Denies No symptoms, Pain, Swelling in joints and Other Skin: Denies No symptoms, Rash, Pruritus, Lacerations, Wounds, Bruising and Other Immunology: Denies No symptoms, Hives, Itching, Frequent infections, Difficulty healing and Other Hematology: Denies No symptoms, Easy bruising, Easy bleeding, Swollen glands and Other Endocrine: Denies No symptoms, Weight changes, Cold intolerance, Heat intolerance, Excessive thirst, Excessive hunger, Polyuria and Other Psychiatric: Denies No symptoms, Depression, Anxiety, Sleeplessness, Hopelessness, Suicidal, Hallucinations and Other Habits: Denies Tobacco use, Substance use, Alcohol use and Other Allergies Allergies Allergy/AdvReac Type Severity Reaction Status Date / Time Sulfa (Sulfonamide AdvReac Verified 12/31/20 17:05 Antibiotics) red meat AdvReac Uncoded 12/31/20 17:05 [facility] Medical History CVA (cerebral vascular accident) Depression Hypertension Family History Mother Breast cancer Social History Smoking and tobacco status: Current every day smoker Tobacco type: cigarettes Smoking cigarettes per day: 5 Years smoked: 50 Smoking pack-years: 12.50 and cigars Per week: 25 Tobacco: How many years used: 50 Quit status: has quit before Alcohol intake: current Alcohol intake frequency: 0-2 drinks per day Alcohol type: beer Substance use type: marijuana Adopted: No Caregiver/support person: No Foster care: No Household members: none Housing: house Marital status: D Lives independently: Yes Number of children: 1 Highest education level completed: Bachelor's degree Current occupational status: retired Previous occupational history: teacher Seatbelt use: always Helmet use: No Drives intoxicated or rides with intoxicated intermodal owner operator truck driver: No Current diet type/program: regular Medications Medications: Medications Generic Name Dose Route Start Last Admin Trade Name Freq PRN Reason Stop Dose Admin Enoxaparin Sodium 30 mg 01/01/21 09:00 Enoxaparin Sodium 30 Mg/0.3 Ml Syr SUBCUT DAILY MICHAEL Sodium Chloride 1,000 mls @ 75 mls/hr 12/31/20 21:00 12/31/20 20:56 Sodium Chloride IV 75 mls/hr .[id number] MICHAEL Administration Paroxetine HCl 20 mg 01/01/21 09:00 Paroxetine Hcl 20 Mg Tablet PO DAILY MICHAEL Sodium Chloride 1 syr 12/31/20 16:41 12/31/20 17:11 0.9% Sodium Chloride 10 Ml Disp.Syrin IVF 1 syr PRN PRN Administration To flush IV Body Composition Height: 5 ft 7 in Weight: 134 lb 5 oz Body Mass Index (BMI): 21.0 Vital Signs Temperature: 98.0 F Pulse Rate: 91 Respiratory Rate: 16 Blood Pressure: 112/65 O2 Sat by Pulse Oximetry: 95 Physical Examination Appearance: Reports Well-appearing, No pain distress and Well-nourished Ill-appearing: None Pain Distress: None Eyes: Reports AVANI and EOMI ENT: Reports Ears normal, Nose normal and Oropharynx normal Respiratory: Reports Airway patent, Breath sounds clear and Breath sounds equal Cardiovascular: Reports RRR, Pulses normal, No rub and No murmur GI/: Reports Soft, Nontender, No masses, Bowel sounds normal and No Organomegaly Musculoskeletal: Reports Normal strength, ROM intact, No edema and No calf tenderness Skin: Reports Warm, Dry and Normal color Neurological: Reports Sensation intact, Motor intact, Reflexes intact, Cranial nerves intact, Alert and Oriented Psychiatric: Reports Affect appropriate and Mood appropriate Lab/Tests/Diagnostic Imaging Lab/Tests/Diagnostic Imaging: Lab Review 12/31/20 12/31/20 12/31/20 17:05 17:05 17:05 WBC 11.08 H RBC 4.06 L Hgb 13.1 L Hct 36.6 L MCV 90.1 MCH 32.3 H MCHC 35.8 H RDW Coeff of Odilon 11.9 Plt Count 255 Immature Gran % (Auto) 0.4 Neut % (Auto) 71.8 Lymph % (Auto) 19.5 Terrell % (Auto) 7.9 Eos % (Auto) 0.3 Baso % (Auto) 0.1 Neut # (Auto) 8.0 H Lymph # (Auto) 2.2 Terrell # (Auto) 0.9 Eos # (Auto) 0.0 Baso # (Auto) 0.0 Immature Gran # (Auto) 0.0 Sodium 131.4 L Potassium 4.72 Chloride 97.6 L Carbon Dioxide 23.0 Anion Gap 15.52 BUN 53.6 H Creatinine 3.14 H Estimated GFR (MDRD) 20.00 BUN/Creatinine Ratio 17.07 Glucose 113.0 H Lactic Acid 1.59 Calcium 9.91 Total Bilirubin 0.48 AST 32.2 ALT 21.5 Alkaline Phosphatase 110.0 Troponin I < 0.012 Total Protein 7.90 Albumin 4.60 Globulin 3.30 Albumin/Globulin Ratio 1.39 Urine Color Urine Clarity Urine pH Ur Specific [place] Urine Protein Urine Glucose (UA) Urine Ketones Urine Blood Urine Nitrite Urine Bilirubin Urine Urobilinogen Ur Leukocyte Esterase Urine Microscopic RBC Ur Squamous Epith Cells Amorphous Sediment Hyaline Casts Fine Granular Casts Urine Opiates Screen Ur Oxycodone Screen Urine Methadone Screen Ur Propoxyphene Screen Ur Barbiturates Screen U Tricyclic Antidepress Ur Phencyclidine Scrn Ur Amphetamine Screen U Methamphetamines Scrn U Benzodiazepines Scrn Urine Cocaine Screen U Cannabinoids Screen Plasma/Serum Alcohol < 10.0 Adenovirus (PCR) B. pertussis DNA (PCR) B.parapertussis DNA PCR C. pneumoniae DNA (PCR) Coronavirus OC43 (PCR) Coronavirus HKU1 (PCR) Coronavirus 229E (PCR) Coronavirus NL63 (PCR) Human Metapneumovir PCR Influenza Type A (PCR) Influenza B (RT-PCR) M. pneumoniae (PCR) Parainfluenza 1 (PCR) Parainfluenza 2 (PCR) Parainfluenza 3 (PCR) Parainfluenza 4 (PCR) RSV (PCR) Entero/Rhino (PCR) SARS-CoV-2 (PCR) 12/31/20 12/31/20 12/31/20 20:01 20:01 21:30 WBC RBC Hgb Hct MCV MCH MCHC RDW Coeff of Odilon Plt Count Immature Gran % (Auto) Neut % (Auto) Lymph % (Auto) Terrell % (Auto) Eos % (Auto) Baso % (Auto) Neut # (Auto) Lymph # (Auto) Terrell # (Auto) Eos # (Auto) Baso # (Auto) Immature Gran # (Auto) Sodium Potassium Chloride Carbon Dioxide Anion Gap BUN Creatinine Estimated GFR (MDRD) BUN/Creatinine Ratio Glucose Lactic Acid Calcium Total Bilirubin AST ALT Alkaline Phosphatase Troponin I Total Protein Albumin Globulin Albumin/Globulin Ratio Urine Color Yellow Urine Clarity Clear Urine pH 5.0 Ur Specific [place] 1.025 Urine Protein Trace H Urine Glucose (UA) Negative Urine Ketones 1+ H Urine Blood Negative Urine Nitrite Negative Urine Bilirubin 1+ H Urine Urobilinogen 0.2 Ur Leukocyte Esterase Negative Urine Microscopic RBC 2-5 Ur Squamous Epith Cells 0-2 Amorphous Sediment 1+ Hyaline Casts 2-5 Fine Granular Casts 2-5 Urine Opiates Screen Negative Ur Oxycodone Screen Negative Urine Methadone Screen Negative Ur Propoxyphene Screen Negative Ur Barbiturates Screen Negative U Tricyclic Antidepress Negative Ur Phencyclidine Scrn Negative Ur Amphetamine Screen Positive H U Methamphetamines Scrn Negative U Benzodiazepines Scrn Negative Urine Cocaine Screen Negative U Cannabinoids Screen Negative Plasma/Serum Alcohol Adenovirus (PCR) Not detected B. pertussis DNA (PCR) Not detected B.parapertussis DNA PCR Not detected C. pneumoniae DNA (PCR) Not detected Coronavirus OC43 (PCR) Not detected Coronavirus HKU1 (PCR) Not detected Coronavirus 229E (PCR) Not detected Coronavirus NL63 (PCR) Not detected Human Metapneumovir PCR Not detected Influenza Type A (PCR) Not detected Influenza B (RT-PCR) Not detected M. pneumoniae (PCR) Not detected Parainfluenza 1 (PCR) Not detected Parainfluenza 2 (PCR) Not detected Parainfluenza 3 (PCR) Not detected Parainfluenza 4 (PCR) Not detected RSV (PCR) Not detected Entero/Rhino (PCR) Not detected SARS-CoV-2 (PCR) Not detected 01/01/21 01/01/21 04:50 04:50 WBC 6.43 RBC 3.84 L Hgb 12.3 L Hct 34.2 L MCV 89.1 MCH 32.0 H MCHC 36.0 H RDW Coeff of Odilon 12.0 Plt Count 243 Immature Gran % (Auto) 0.5 Neut % (Auto) 81.7 H Lymph % (Auto) 15.6 Terrell % (Auto) 2.2 Eos % (Auto) 0.0 Baso % (Auto) 0.0 Neut # (Auto) 5.3 Lymph # (Auto) 1.0 Terrell # (Auto) 0.1 L Eos # (Auto) 0.0 Baso # (Auto) 0.0 Immature Gran # (Auto) 0.0 Sodium 131.7 L Potassium 4.83 Chloride 101.9 Carbon Dioxide 22.2 Anion Gap 12.43 BUN 52.3 H Creatinine 2.24 H D Estimated GFR (MDRD) 29.00 BUN/Creatinine Ratio 23.34 Glucose 139.8 H Lactic Acid Calcium 9.13 Total Bilirubin 0.47 AST 29.7 ALT 20.3 Alkaline Phosphatase 92.3 Troponin I Total Protein 7.05 Albumin 3.97 Globulin 3.08 Albumin/Globulin Ratio 1.28 Urine Color Urine Clarity Urine pH Ur Specific [place] Urine Protein Urine Glucose (UA) Urine Ketones Urine Blood Urine Nitrite Urine Bilirubin Urine Urobilinogen Ur Leukocyte Esterase Urine Microscopic RBC Ur Squamous Epith Cells Amorphous Sediment Hyaline Casts Fine Granular Casts Urine Opiates Screen Ur Oxycodone Screen Urine Methadone Screen Ur Propoxyphene Screen Ur Barbiturates Screen U Tricyclic Antidepress Ur Phencyclidine Scrn Ur Amphetamine Screen U Methamphetamines Scrn U Benzodiazepines Scrn Urine Cocaine Screen U Cannabinoids Screen Plasma/Serum Alcohol Adenovirus (PCR) B. pertussis DNA (PCR) B.parapertussis DNA PCR C. pneumoniae DNA (PCR) Coronavirus OC43 (PCR) Coronavirus HKU1 (PCR) Coronavirus 229E (PCR) Coronavirus NL63 (PCR) Human Metapneumovir PCR Influenza Type A (PCR) Influenza B (RT-PCR) M. pneumoniae (PCR) Parainfluenza 1 (PCR) Parainfluenza 2 (PCR) Parainfluenza 3 (PCR) Parainfluenza 4 (PCR) RSV (PCR) Entero/Rhino (PCR) SARS-CoV-2 (PCR) Orders Category Date Time Status ADMIT PATIENT INPATIENT .TO MEDSURG (MONITORED BED) ADMISSION 12/31/20 20:46 Active EKG-(ED ONLY) Stat CARDIO 12/31/20 16:41 Completed METERED DOSE INHALATION Routine CARDIO 12/31/20 17:33 Completed ACTIVITY .BR with BRP CARE 12/31/20 20:47 Active INTAKE & OUTPUT Q8HR CARE 12/31/20 20:47 Active IP: INSERT SALINE LOCK ONCE CARE 12/31/20 20:47 Active TELEMETRY MONITORING TELE CARE 12/31/20 20:46 Active VITAL SIGNS Q8HR CARE 12/31/20 20:47 Active REGULAR DIET DIETARY 12/31/20 Breakfast Ordered ED IV/MEDIPORT/POWERPORT .ONCE EMERGENCY 12/31/20 16:41 Active BLOOD ALCOHOL Stat LAB 12/31/20 17:05 Completed BLOOD CULTURE (ED ONLY) Stat LAB 12/31/20 17:20 Received CBC W/ AUTO DIFF DAILY@0600 LAB 01/01/21 04:50 Completed CBC W/ AUTO DIFF DAILY@0600 LAB 01/02/21 06:00 Ordered CBC W/ AUTO DIFF Stat LAB 12/31/20 17:05 Completed COMPREHENSIVE METABOLIC PANEL DAILY@0600 LAB 01/01/21 04:50 Completed COMPREHENSIVE METABOLIC PANEL DAILY@0600 LAB 01/02/21 06:00 Ordered COMPREHENSIVE METABOLIC PANEL Stat LAB 12/31/20 17:05 Completed DRUG SCREEN, URINE, RAPID Stat LAB 12/31/20 20:01 Completed LACTIC ACID Stat LAB 12/31/20 17:05 Completed RESPIRATORY PANEL 2.1 (PCR) Stat LAB 12/31/20 21:30 Completed TROPONIN I Stat LAB 12/31/20 17:05 Completed URINALYSIS C & S IF INDICATED Stat LAB 12/31/20 20:01 Completed 0.9 % Sodium Chloride [Saline Flush] MEDS 12/31/20 16:41 Active 1 syr IVF PRN PRN Albuterol Inhaler(with Spacer) [Ventolin Hfa (Per Puff- MEDS 12/31/20 17:31 Discontinued with Spacer)] 2 puff IH ONCE ONE Enoxaparin Sodium [Lovenox] MEDS 01/01/21 09:00 Active 30 mg SUBCUT DAILY Ipratropium Inhaler(Spacer) [Atrovent Hfa Inhaler (Per MEDS 12/31/20 17:31 Discontinued Puff-with Spacer)] 2 puff IH ONCE ONE Methylprednisolone Sod Succ/Pf [Solu-Medrol 125 mg] MEDS 12/31/20 17:31 Discontinued 125 mg IVP ONCE ONE Paroxetine HCl [Paxil] MEDS 01/01/21 09:00 Active 20 mg PO DAILY Sodium Chloride 0.9% [Sodium Chloride] 1,000 ml MEDS 12/31/20 21:00 Active IV 75 mls/hr Sodium Chloride 0.9% [Sodium Chloride] 1,000 ml MEDS 12/31/20 16:41 Discontinued IV BOLUS RESUSCITATION STATUS Routine OTHERS 12/31/20 20:47 Completed RESUSCITATION STATUS Routine OTHERS 01/01/21 01:[address] ABDOMEN/PELVIS WO CONTRAST Stat RADS 12/31/20 19:[address] CHEST W/O CONTRAST Stat RADS 12/31/20 17:[address] HEAD W/O CONTRAST Stat RADS 12/31/20 16:41 Completed Medications Generic Name Dose Route Start Last Admin Trade Name Freq PRN Reason Stop Dose Admin Enoxaparin Sodium 30 mg 01/01/21 09:00 Enoxaparin Sodium 30 Mg/0.3 Ml Syr SUBCUT DAILY MICHAEL Sodium Chloride 1,000 mls @ 75 mls/hr 12/31/20 21:00 12/31/20 20:56 Sodium Chloride IV 75 mls/hr .[id number] MICHAEL Administration Paroxetine HCl 20 mg 01/01/21 09:00 Paroxetine Hcl 20 Mg Tablet PO DAILY MICHAEL Sodium Chloride 1 syr 12/31/20 16:41 12/31/20 17:11 0.9% Sodium Chloride 10 Ml Disp.Syrin IVF 1 syr PRN PRN Administration To flush IV Discontinued Medications Generic Name Dose Route Start Last Admin Trade Name Freq PRN Reason Stop Dose Admin Albuterol Sulfate 2 puff 12/31/20 17:31 12/31/20 17:53 Albuterol Sulfate (Ventolin Hfa) 18 Gm 1 Puff With Spacer IH 12/31/20 17:32 2 puff ONCE ONE Administration Sodium Chloride 1,000 mls @ 1,000 mls/hr 12/31/20 16:41 12/31/20 17:10 Sodium Chloride IV 12/31/20 17:40 1,000 mls/hr BOLUS STA Administration Ipratropium [place] 2 puff 12/31/20 17:31 12/31/20 17:54 Ipratropium [place] 12.9 Gm Hfa Inhaler Per Puff With Spacer IH 12/31/20 17:32 2 puff ONCE ONE Administration Methylprednisolone Sodium Succinate 125 mg 12/31/20 17:31 12/31/20 17:51 Methylprednisolone Sod Succ/Pf 125 Mg/2 Ml Vial IVP 12/31/20 17:32 125 mg ONCE ONE Administration Assessment (1) FAHAD (acute kidney injury): Status: Acute Code(s): N17.9 - Acute kidney failure, unspecified SNOMED Code(s): 10130441 (2) Dizziness: Status: Acute Code(s): R42 - Dizziness and giddiness SNOMED Code(s): 594579255 (3) Hypertension: Status: Acute Code(s): I10 - Essential (primary) hypertension SNOMED Code(s): 53184247
[2021-01-01] MEDS: LOVENOX SUBCUT SCH (09:04)
[2021-01-01] MEDS: PAXIL PO SCH (09:04)
[2021-01-01] MEDS: SODIUM CHLORIDE 1,000 ML IV SCH ×2 (10:31→23:06)
--- NOTE | 2021-01-01 12:56 | US ---
EXAM: Carotid ultrasound HISTORY: Dizziness COMPARISON: None TECHNIQUE: Carotid ultrasound was performed using Duplex imaging with farias scale, color, and Doppler imaging performed. FINDINGS: Right carotid: There is atherosclerotic plaque in the common carotid and bulb/internal carotid arter y. Peak systolic velocity measurement in the right internal carotid artery is 2.57 meters per second . End-diastolic velocity measurement in the right internal carotid artery is 0.76 meters per second. Right internal to common carotid artery peak systolic velocity ratio is 4.6. Flow in the right drew tebral artery is antegrade. Left carotid: There is atherosclerotic plaque in the common carotid and bulb/internal carotid artery . Peak systolic velocity measurement in the left internal carotid artery is 1.46 meters per second. End-diastolic velocity measurement in the left internal carotid artery is 0.25 meters per second. L eft internal to common carotid artery peak systolic velocity ratio measures 1.4. Flow in the left ve rtebral artery is antegrade. IMPRESSION: 1. Right internal carotid: Peak systolic velocity corresponds with severe (greater than 70%) stenosi s 2. Left internal carotid: Peak systolic velocity corresponds with moderate (50 - 69%) stenosis. 3. Consider correlation with CT angiography neck.
--- NOTE | 2021-01-01 13:07 | ECHO2D ---
Date of Exam: 01/01/2021 Ordering Physician: DR. WOO--HOSPITALIST Room #: 111 Reason for Echo: HTN, DIZZINESS, WEAKNESS M-Mode Normal Adult Results LV Dimensions Normal Adult Results AoV Opening excursions >1.6 >1.6 LVEDD-base- 3.5-5.8 4.2 Ao root dimensions 2.0-3.7 3.5 LVESD-base- 3.1-4.6 L. Atrium dimensions 1.9-3.8 3.4 Post. Wall thickness 0.8-1.1 1.0 IV septum (thickness) 0.7-1.2 1.0 Post. Wall excursion 0.72-1.3 NORMAL Septal motion NORMAL Systolic motion R. Ventricular cavity 1.5-2.0 3.5 LVEF 60% 55% Paradoxical septal wall motion NORMAL 2-D : 2-D M Mode Echocardiogram was performed using apical four chamber and left parasternal long and short axis views. Mitral, tricuspid and aortic valves appear to be normal. Contractility of the left ventricle seems to be normal, so is the cavity size. Left atrial cavity size and aortic root appear to be normal. There is no pericardial effusion. There is no thrombus noted in the left ventricle or left atrial cavity. No mitral valve prolapse noted. ENLARGED RIGHT VENTRICLE CAVITY. M-MODE: MV: NORMAL AV: NORMAL TV: NORMAL PV: CHAMBER SIZE: ENLARGED RIGHT VENTRICLE CAVITY WALL MOTION: NORMAL PERICARDIUM: NORMAL INTERPRETATION: 1. ENLARGED RIGHT VENTRICLE CAVITY 2. NORMAL LEFT VENTRICLE CONTRACTILITY AND LEFT VENTRICLE SIZE 3. NORMAL VALVES MTDD
[2021-01-02 04:57] LABS: BASOPHILS % (AUTO) 0.1 % (0.0-3.0); EOSINOPHILS # (AUTO) 0.1 K/ul (0.0-0.7); EOSINOPHILS % (AUTO) 0.6 % (0.0-7.0); HEMATOCRIT 32.5 % (42.0-52.0); HEMOGLOBIN 11.6 g/dl (14.0-18.0); IMMATURE GRANULOCYTE % (AUTO) 0.1 % (0.0-5.0); LYMPHOCYTES # (AUTO) 3.1 K/uL (0.60-3.4); LYMPHOCYTES % (AUTO) 36.8 (10.0-50.0); MEAN CORPUSCULAR HEMOGLOBIN 31.8 pg (27.0-31.0); MEAN CORPUSCULAR HGB CONC 35.7 (31.8-35.4); MONOCYTES # (AUTO) 0.8 K/uL (0.4-2.0); NEUTROPHILS # (AUTO) 4.4 K/ul (2.0-6.9); NEUTROPHILS % (AUTO) 52.4 % (42.2-75.2); PLATELET COUNT 221 10^3/uL (140-440); RDW COEFFICIENT OF VARIATION 11.9 % (11.6-14.8); RED BLOOD COUNT 3.65 10^6/ul (4.70-6.10); WHITE BLOOD COUNT 8.43 K/ul (4.2-10.2)
[2021-01-02 05:11] LABS: ALANINE AMINOTRANSFERASE 22.9 U/L (0-50); ALBUMIN 3.69 g/dL (3.5-5.0); ALKALINE PHOSPHATASE 83.4 U/L (56-119); ASPARTATE AMINO TRANSFERASE 36.2 U/L (17-59); BILIRUBIN,TOTAL 0.46 mg/dL (0.2-1.3); BLOOD UREA NITROGEN 43.3 mg/dL (9-20); CALCIUM 8.91 mg/dL (8.4-10.2); CARBON DIOXIDE 25.2 mmol/L (22-30.0); CHLORIDE 105.9 mmol/L (98-107); CREATININE 1.47 mg/dL (0.60-1.10); GLUCOSE 99.3 mg/dL (74-106); POTASSIUM 4.56 mmol/L (3.5-5.1); TOTAL PROTEIN 6.44 g/dL (6.3-8.2)
[2021-01-02 06:15] VITALS: BP 144/75; TEMP 97.7
[2021-01-02] MEDS: PAXIL PO SCH (08:18)
[2021-01-02] MEDS: LOVENOX SUBCUT SCH (08:19)
--- NOTE | 2021-01-02 09:03 | US ---
Exam: Hernández-scale and color ultrasonographic evaluation of the kidneys and urinary bladder. Comparison: CT abdomen pelvis performed 12/31/2020. Reason for exam: Acute kidney injury. FINDINGS: Right kidney measures 6.3 x 4.5 x 2.3 cm without evidence of hydronephrosis or nephrolithi asis. Left kidney measures 11.1 x 5.4 x 4.1 cm without evidence of hydronephrosis or nephrolithiasis. There is circumferential bladder wall thickening. The right and left ureteral jets are not seen. Impression: Right kidney is decreased in size when compared to the left kidney and may be atrophic. No hydronephrosis or nephrolithiasis in either kidney.
--- NOTE | 2021-01-02 11:43 | PCM.DC ---
Final Diagnosis: acute kidney injury dizziness hypertension carotid stenosis (1) FAHAD (acute kidney injury): Status: Acute Code(s): N17.9 - Acute kidney failure, unspecified SNOMED Code(s): 75958699 (2) Dizziness: Status: Acute Code(s): R42 - Dizziness and giddiness SNOMED Code(s): 738821669 (3) Hypertension: Status: Acute Code(s): I10 - Essential (primary) hypertension SNOMED Code(s): 61713482 (4) Pulmonary nodule: Status: Acute Code(s): R91.1 - Solitary pulmonary nodule SNOMED Code(s): 972871487 Reason for Hospitalization: patient was admitted for acute kidney injury with a creatine of 3.14 and continued dizziness. Prognosis at Discharge: good Medications at Discharge: Ambulatory Orders Medication Instructions Recorded dextroamphetamine 5 mg PO DAILY 12/31/20 dextroamphetamine 15 mg PO DAILY 12/31/20 hydrochlorothiazide 25 mg PO DAILY 12/31/20 lisinopril 40 mg PO DAILY 12/31/20 paroxetine HCl 20 mg PO DAILY 01/01/21 Lab/Diagnostics: CT abdomen pelvis: right renal atrophy soft tissue nodule in liver rec 6 month followup renal ultrasound: right kidney smaller probably atrophy carotid ultrasound: right side severe stenosis 70% left stenosis 50-69% ct chest pulmonary nodule rec [address] head showed old lacunar infarct. Education Provided to Patient and Family: patient to be provided acute kidney injury instructions, carotid stenosis instructions, hypertension instructions Follow-ups: SMART TRANSPORTATION: IF YOU NEED TRANSPORTATION TO ANY APPOINTMENTS AN APPOINTMENT IS SCHEDULED AT [facility] FOR January AT 10:30 AM LOCATION: [address] [place] [address]) PHONE NUMBER [phone] IF YOU NEED TO RESCHEDULE YOU WERE GIVEN A CD TO TAKE WITH YOU TO THE VASCULAR APPOINTMENT AT [facility] YOUR APPOINTMENT IS : A REFERRAL HAS BEEN SENT TO [facility]. YOU WILL BE CALLED BY [facility] OR CASE MANAGEMENT (EDUARDO BAEZ RN) WITH YOUR APPO INTMENT. LOCATION OF [facility]: [address] [place] [address] [address] [place], [place] PHONE NUMBER: Discharge Disposition: Home Hospital Course: patient was admitted from the ER after having an episode of dizziness and was found to have acute kidney injury with a creatine of 3.14 after hydration it has slowly improved to 1.47 on the day of discharge. CT head revealed an old lacunar infarct. On carotid ultrasound he was found to have a 70% stenosis of the right internal carotid. the case was discussed with neurology at the tertiary care facility in [place] and it was felt that this would not be the cause of his admitting symptoms. it was recommended that he follow up as an outpatient for these findings. due to the acute kidney injury a renal ultrasound was preforded that did not show any obstructive process but did show an smaller right kidney that may be atrophied. CT scans of the abdomen and pelvis showed renal atrophy and a liver nodule that will need 6 month followup. The patient is feeling much better now and has no complaints of dizziness and would like to be discharged home. time spent in discharge planning 30 minutes. Plan: plan will be to discharge pateint home today with outpatient follow up with vascular and primary care.
[2021-01-02] MEDS ORDERED: PNEUMOVAX 23 IM ONE (13:13)
--- NOTE | 2021-01-02 23:40 | PCM.HOSP ---
Additional Information Additional Information: 01/01/2021 1930hrs Re:Fany Roberts ( 1945 ) Results of the patients carotid ultrasound which were ordered this morning reviewed. Of interest as noted in the right and left carotid artery atherosclerotic plaque in the common carotid bulb/internal carotid artery.The measurements were interpreted as the right Internal carotid having greater than 70% stenosis in the left Internal carotid 50 to 69% stenosis , Recommended to correlate with CT angiography of the neck. Because of the patients compromise real function this is not possible at this point. Recent CT scan completed on 2620 reveal the old left lacunar infarct, Because of the patients presenting complaints I sought out expert neurological consultation and contacted [facility] and discussed with the nurse quality control auditor the symptoms and findings of Mr. Roberts requested to speak with either a hospitalist,neurologist or vascular surgeon She put me in touch with Dr. Himanshu Cuevas , Staff neurologist at the [facility] department of neurology. I discussed the case with him along with the patients symptoms. He did not feel that his symptoms correlated with the findings on the carotid ultrasound or his past history of the lacunar infarct He stated that he did not feel like the patient needed to be transferred as his symptoms of dizziness Were not related to the carotid stenosis Recommended repeating the scan in three months and follow him closely as an outpatient. This information was conveyed to Dr. Farley the night ER physician and hospitalist
== END 2021-01-02 14:37 | disposition home or self-care (01) | DRG 948 ==
LOC: ED 16:32 → MEDSURG A 23:29
PROVIDERS: ADMIT Family Medicine; ATTEND Emergency Medicine
DX: R53.1 Weakness; Z20.822 Contact with and (suspected) exposure to COVID-19; R42 Dizziness and giddiness; R91.1 Solitary pulmonary nodule; I10 Essential (primary) hypertension